=== PATIENT | female | born 1990 | race Caucasian/White ===

== ENCOUNTER 2022-08-10 16:34 | Emergency (ER) | payer OTHER, SELFPAY ==
[2022-08-10 16:41] VITALS: BP 124/77; PULSE 64; RESP 18; TEMP 36.8; O2SAT 100; BMI 24.3
[2022-08-10 17:34] LABS: Bacteria Urine Occasional (0-1); Culture Indicated Urine Specimen Cultured; RBC Urine 1-5/HPF (0-5/HPF); WBC Urine 5-10/HPF (0-5/HPF)
--- NOTE | 2022-08-10 21:08 | ED_ITS ---
HPI - Female Genitourinary <TYRESE Orr - Last Filed: 08/10/22 21:28> General Chief complaint: Urogenital-Female Stated complaint: uti infection/pain x1 day Time Seen by Provider: 08/10/22 18:59 Source: patient Mode of arrival: Ambulatory History of Present Illness HPI Narrative: This is a 31-year-old female without significant medical history presents emergency department complaining of dysuria and urinary symptoms on and off over the last few months with what she thinks is a recurrent urinary tract infection that has never fully resolved. She denies fever chills, denies nausea vomiting, denies flank playing or sweating. States that she has vaginal discharge, denies any blood in her urine, denies chance of . She denies any abdominal pain or abnormal stool. Related Data Previous Rx's Medication Instructions Recorded phenazopyridine 100 mg tablet 100 mg PO QPC 6 doses #7 tabs 08/10/22 (Pyridium) Allergies Allergy/AdvReac Type Severity Reaction Status Date / Time No Known Drug Allergies Allergy Verified 08/10/22 16:41 Review of Systems <TYRESE Orr - Last Filed: 08/10/22 21:28> Review of Systems ROS Unobtainable: All systems reviewed & are unremarkable except as noted in HPI and below Patient History <TYRESE Orr - Last Filed: 08/10/22 21:28> alcohol intake frequency: holidays/special occasions only Substance Use Type: does not use Exam <TYRESE Orr - Last Filed: 08/10/22 21:28> Narrative Exam Narrative: Reviewed vitals signs and nursing notes. General: cooperative, comfortable, in no acute distress, well groomed HEENT: symmetrical facial expressions, moist mucous membranes Cardiovascular: regular rate and rhythm, no peripheral edema, warm extremities Respiratory: normal effort, able to speak in complete sentences, without wheezing, stridor, or abnormal breath sounds. No retractions or tachypnea. GI: abdomen soft, nontender to palpation, nondistended, without masses, rebound tenderness or exquisite tenderness with exam. Mild suprapubic tenderness with deep palpation, nontender over left and right ovary, no CVA tenderness bilaterally MSK: moves all extremities, neurovascularly intact, no weakness, normal tone Skin: brisk capillary refill, without pallor or erythema Neuro: normal speech and cognition, A&O x3, ambulatory, clear speech Psych: mental status is grossly normal, congruent mood, normal affect, pleasant and cooperative Initial Vital Signs Initial Vital Signs: Vital Signs Temperature 98.2 F 08/10/22 16:41 Pulse Rate 64 08/10/22 16:41 Respiratory Rate 18 08/10/22 16:41 Blood Pressure 124/77 08/10/22 16:41 Pulse Oximetry 100 08/10/22 16:41 Oxygen Delivery Method 08/10/22 16:41 <Rosa Brown DO - Last Filed: 08/17/22 08:03> Initial Vital Signs Initial Vital Signs: Vital Signs Temperature 98.2 F 08/10/22 16:41 Pulse Rate 64 08/10/22 16:41 Respiratory Rate 18 08/10/22 16:41 Blood Pressure 124/77 08/10/22 16:41 Pulse Oximetry 100 08/10/22 16:41 Oxygen Delivery Method 08/10/22 16:41 Course <TYRESE Orr - Last Filed: 08/10/22 21:28> Orders Ordered: Discontinued Medications Ceftriaxone Sodium (Ceftriaxone 2,000 Mg Vial) 1,000 mg IM NOW ONE Stop: 08/10/22 20:36 Last Admin: 08/10/22 21:12 Dose: Not Given Documented By: ABDELRAHMAN Cephalexin HCl (Cephalexin 250 Mg Capsule) 1,000 mg PO NOW ONE Stop: 08/10/22 21:13 Last Admin: 08/10/22 21:17 Dose: 1,000 mg Documented By: ABDELRAHMAN Metronidazole (Metronidazole 500 Mg Tablet) 500 mg PO NOW ONE Stop: 08/10/22 21:04 Last Admin: 08/10/22 21:17 Dose: 500 mg Documented By: ABDELRAHMAN Phenazopyridine HCl (Phenazopyridine 100 Mg Tablet) 100 mg PO NOW ONE Stop: 08/10/22 21:08 Last Admin: 08/10/22 21:17 Dose: 100 mg Documented By: ABDELRAHMAN Vital Signs Vital signs: Vital Signs - 8 hr 08/10/22 16:41 Temperature 98.2 F Pulse Rate 64 Respiratory Rate 18 Blood Pressure 124/77 Pulse Oximetry 100 Oxygen Delivery Method Room Air <Rosa Brown DO - Last Filed: 08/17/22 08:03> Orders Ordered: Discontinued Medications Ceftriaxone Sodium (Ceftriaxone 2,000 Mg Vial) 1,000 mg IM NOW ONE Stop: 08/10/22 20:36 Last Admin: 08/10/22 21:12 Dose: Not Given Documented By: ABDELRAHMAN Cephalexin HCl (Cephalexin 250 Mg Capsule) 1,000 mg PO NOW ONE Stop: 08/10/22 21:13 Last Admin: 08/10/22 21:17 Dose: 1,000 mg Documented By: ABDELRAHMAN Metronidazole (Metronidazole 500 Mg Tablet) 500 mg PO NOW ONE Stop: 08/10/22 21:04 Last Admin: 08/10/22 21:17 Dose: 500 mg Documented By: ABDELRAHMAN Phenazopyridine HCl (Phenazopyridine 100 Mg Tablet) 100 mg PO NOW ONE Stop: 08/10/22 21:08 Last Admin: 08/10/22 21:17 Dose: 100 mg Documented By: ABDELRAHMAN Vital Signs Vital signs: Vital Signs - 8 hr 08/10/22 16:41 Temperature 98.2 F Pulse Rate 64 Respiratory Rate 18 Blood Pressure 124/77 Pulse Oximetry 100 Oxygen Delivery Method Room Air MDM - Female Genitourinary <TYRESE Orr - Last Filed: 08/10/22 21:28> Lab Data Lab results narrative: [facility] CLIA ID [id number] [address] [place] [address] RUN DATE: 08/10/22 Specimen Inquiry PAGE 1 RUN TIME: 2124 Name: Camelia Amezcua Age/Sex: 31/F Attend Dr: Coby White Unit#: [id number] : 1990Location: ED Re08/10/22 Disch: Status: REG ER SPEC #: [id number] DAVIS: 08/10/22 STATUS: COMP REQ #: [id number] SPDESC: RECD: 08/10/[address]: Coby White SOURCE: Vaginal ENTR: 08/10/[address]: FAX TO: ORDERED: Wet Prep Procedure Result Verified Site Wet Prep Tric BV Lauren Final 08/10/222055 White blood cells Occasional WBC seen Clue cells: None seen Yeast: None seen Trichomonas: None seen Labs: Lab Results 08/10/22 Range/Units 16:50 Urine RBC 1-5/hpf (0-5/HPF) Urine WBC 5-10/hpf H (0-5/HPF) Urine Bacteria Occasional (0-1) (None) Ur Culture Indicated? Specimen cultured Point of Care Testing Test Results Negative Urine Dip Bedside Urine Glucose Negative Bedside Urine Bilirubin - Negative Bedside Urine Ketone - Negative Urine Specific [place] 1.015 Bedside Urine Occult Blood +++ Bedside Urine pH 7.0 Bedside Urine Protein - Negative Bedside Urine Urobilinogen - Negative Bedside Urine Nitrite - Negative Bedside Urine Leukocytes + 70 Esterase MDM Narrative Medical decision making narrative: This is a 31-year-old female presents emergency department with dysuria, urinary for the 1-2 weeks she states fully resolve. She presents today with a UA positive for WBCs, small bacteria and no blood, no lidocaine available so opted to treat with cephalexin instead and patient received her 1st dose here. She is afebrile, without flank pain, nausea, vomiting, tachycardia, symptoms have stomach intention. She denies history of nephrolithiasis, was nontender over ovaries and abdomen.. Her wet prep is positive for WBCs clue cells, yeast, Trichomonas. Patient states her discharge has been abnormal, will treat for bacterial vaginosis with Flagyl x7 days. Recommend follow-up with PCP for test of cure, return to the emergency department for worsening symptoms. Patient is appropriate and amenable to discharge home. Vital signs are stable on repeat examination is unremarkable. Patient has been informed of results. Patient has been given strict return to ER precautions for any new or worsening symptoms. Patient understands to follow up closely with outpatient providers as instructed. Patient understands plan and agrees to discharge home. All questions and concerns answered at this time. <Rosa Brown, DO - Last Filed: 08/17/22 08:03> Lab Data Labs: Lab Results 08/10/22 Range/Units 16:50 Urine RBC 1-5/hpf (0-5/HPF) Urine WBC 5-10/hpf H (0-5/HPF) Urine Bacteria Occasional (0-1) (None) Ur Culture Indicated? Specimen cultured Point of Care Testing Test Results Negative Urine Dip Bedside Urine Glucose Negative Bedside Urine Bilirubin - Negative Bedside Urine Ketone - Negative Urine Specific [place] 1.015 Bedside Urine Occult Blood +++ Bedside Urine pH 7.0 Bedside Urine Protein - Negative Bedside Urine Urobilinogen - Negative Bedside Urine Nitrite - Negative Bedside Urine Leukocytes + 70 Esterase Discharge Plan Departure Patient Disposition: Home Clinical Impression: Bacterial vaginosis Urinary tract infection Qualifiers: Urinary tract infection type: acute cystitis Hematuria presence: without hematuria Qualified Code(s): N30.00 - Acute cystitis without hematuria Instructions: Bacterial Vaginosis, DI for Urinary Tract Infection (UTI) Activity Restrictions/Additional Instructions: *You have been diagnosed with a urinary tract infection and bacterial vaginitis. Please take these medications for the next week to help treat your symptoms and they infection. Follow-up with your primary care provider for a test of cure if you have ongoing symptoms. Stay hydrated, the medication you received in the emergency department should treat your infection but it was still take the medications. For pain or chills, please use ibuprofen 600 every 6 hours, stay hydrated, take Tylenol 650 mg in addition to this on the same schedule. If you have worsening of your symptoms, fever, vomiting, please return to the emergency department. Please schedule a follow-up appointment with a primary care provider or call the number listed below to establish care with 1 of the PCPs in our system. *What to do: *Please continue to take your regular medications as directed. [ x] New medication prescriptions sent to your pharmacy: [[facility] ] [ ] New medication written as a paper prescription [ ] No new medications given *Please follow up with your primary care provider in 2-3 days, call for an appointment. Let them know you were seen in the Emergency Department and that we asked that you be seen for follow-up. We will electronically transmit a record of today's note if your PCP is in our system *If you do not have a primary care provider please contact [phone] to establish care with one of the [facility] primary care providers. *Return to Emergency Department if you should have any new, worsening, or concerning symptoms, such as [fever greater than 101F, chills, worsening pain, persistent vomiting or other bothersome symptoms]. Prescriptions: New phenazopyridine [Pyridium] 100 mg tablet 100 mg PO QPC Qty: 7 0RF <Rosa Borwn DO - Last Filed: 08/17/22 08:03> Cosign ED Attending Cosignature Attestation: I was immediately available in the department for consultation. Documentation has been reviewed.
[2022-08-10] MEDS: cephALEXin 250 MG CAPSULE 1000 MG PO (21:17)
[2022-08-10] MEDS: metroNIDAZOLE 500 MG TABLET PO (21:17)
[2022-08-10] MEDS: PHENAZOPYRIDINE 100 MG TABLET PO (21:17)
[2022-08-10 21:31] VITALS: BP 122/78; PULSE 70; RESP 14; O2SAT 99
== END 2022-08-10 21:33 | disposition home or self-care (01) ==
PROVIDERS: Emergency Medicine; Emergency Provider Nurse Practitioner Critical Care Medicine
DX: N76.0 Acute vaginitis (principal); N30.00 Acute cystitis without hematuria
CPT/HCPCS: 81003; 81015; 81025; 87086; 87210; 99283

== ENCOUNTER → 2023-07-19 17:07 | Outpatient (CLI) | payer OTHER, SELFPAY ==
--- NOTE | 2023-07-19 17:13 | DI.MRI.S_ITS ---
PROCEDURE: MR KNEE LT WO CON INDICATIONS: LEFT KNEE PAIN TECHNIQUE: Noncontrast sagittal PD fast spin echo and T2 fast spin echo with fat saturation, sagittal 3-D FLASH with fat saturation; coronal T1 spin echo and PD fast spin echo with fat saturation, and axial PD fast spin echo with fat saturation through the knee. COMPARISON: None. FINDINGS: Image quality: Excellent. Menisci: The medial meniscus is truncated, presumably secondary to meniscectomy. The lateral meniscus demonstrates normal morphology and internal signal. The meniscal root ligaments appear intact. Cruciate ligaments: Patient is status post anterior cruciate ligament repair. Graft appears intact, with expected signal changes from ligamentization. The tendon graft appears slightly irregular. No high-grade partial or full-thickness graft tears. No posterior bowing of the graft to suggest roof impingement. Femoral and tibial tunnels are in expected positions, without widening. Small tunnel cysts noted in the proximal tibial tunnel. The posterior cruciate ligament appears intact. Medial structures: The medial collateral ligament appears intact. The semimembranosus tendon insertions and meniscocapsular junction appear intact. Visualized portions of the pes anserinus tendons appear intact. No abnormal bursal fluid. Lateral structures: The lateral collateral ligament, long and short heads of the biceps femoris tendon appear intact. The popliteus tendon appears normal;. Iliotibial band appears normal, without findings to suggest friction syndrome. Anterior structures: The quadriceps and patellar tendons appear intact. Patellar alignment is normal. No femoral trochlear dysplasia or ventral trochlear prominence. No edema in the infrapatellar fat pad. No localized arthrofibrosis (cyclops lesion) in the anterior intercondylar notch. Bones and cartilage: Sagittal images demonstrate no abnormal anterior tibial translation. No bone marrow contusions or fractures. Mild cartilage fibrillation with preserved cartilage thickness. Joint space: There is small knee joint fluid. There is a small Granados's cyst. Normal appearing synovial plicae are incidentally noted. There is a 6 mm intra-articular body in the anterior intercondylar notch. IMPRESSION: 1. Postsurgical changes related to ACL repair. No high-grade partial-thickness or full-thickness tear of the tendon graft. 2. Truncation of the medial meniscus, likely sequelae of meniscectomy. 3. A 6 mm intra-articular body in the anterior intercondylar notch. 4. Small knee joint effusion. 5. A small Granados's cyst. Dictated by: Fifi Richmond M.D. on 07/20/2023 at 13:20 Approved by: Fifi Richmond M.D. on 07/21/2023 at 8:11
== END ==
PROVIDERS: Referring Provider Preventive Medicine Aerospace Medicine; Visit Provider Preventive Medicine Aerospace Medicine
DX: M25.462 Effusion, left knee (principal); M71.22 Synovial cyst of popliteal space [Baker], left knee; M23.42 Loose body in knee, left knee; M23.8X9 Other internal derangements of unspecified knee; M25.569 Pain in unspecified knee
CPT/HCPCS: 73721

== ENCOUNTER 2023-08-19 12:42 | Emergency (ER) | payer OTHER, SELFPAY ==
[2023-08-19] VITALS (9 sets, daily range): BP systolic 116–141; BP diastolic 61–86; PULSE 51–75; RESP 16–18; TEMP 36.1; O2SAT 96–100; BMI 25.0
[2023-08-19] MEDS: ACETAMINOPHEN 325 MG TABLET 650 MG PO (13:08)
[2023-08-19] MEDS: ONDANSETRON 4 MG ODT SL ×2 (13:09→16:49)
--- NOTE | 2023-08-19 13:15 | DI.CT.S_ITS ---
PROCEDURE: CT CERVICAL SPINE WO CON INDICATIONS: knee to head, + vomiting TECHNIQUE: Noncontrast 3 mm thick sections acquired from the skull base to the T4 level. Sagittal and coronal reformats were then constructed. For radiation dose reduction, the following was used: automated exposure control, adjustment of mA and/or kV according to patient size. COMPARISON: None. FINDINGS: Image quality: Excellent. Bones: No fractures or dislocations. Visualized superior ribs are intact. Soft tissues: Prevertebral soft tissues are normal in thickness. No paravertebral hematomas. No apical pneumothoraces. IMPRESSION: No acute fracture. No osseous lesion. If symptoms and/or clinical suspicion for pathology persist, further assessment with bone scan or MRI may be helpful for further assessment. Dictated by: Vianey Cardoso M.D. on 08/19/2023 at 13:54 Approved by: Vianey Cardoso M.D. on 08/19/2023 at 13:56
--- NOTE | 2023-08-19 13:15 | DI.CT.S_ITS ---
PROCEDURE: CT HEAD/BRAIN WO CON INDICATIONS: knee to head, + vomiting TECHNIQUE: Noncontrast 4.5 mm thick angled axial sections acquired from the foramen magnum to the vertex, with coronal and sagittal reformats. For radiation dose reduction, the following was used: automated exposure control, adjustment of mA and/or kV according to patient size. COMPARISON: None. FINDINGS: Image quality: Diagnostic. CSF spaces: Basal cisterns are patent. No extra-axial fluid collections. Ventricles are normal in size and shape. Brain: No midline shift. No intracranial masses or hemorrhage. Srivastava-white matter interface is normal. Skull and face: Calvarium and visualized facial bones are intact, without suspicious lesions. Sinuses: Visualized sinuses and mastoids are clear. IMPRESSION: No acute intracranial pathology. Dictated by: Vianey Cardoso M.D. on 08/19/2023 at 13:54 Approved by: Vianey Cardoso M.D. on 08/19/2023 at 13:54
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
[2023-08-19] MEDS: PROPARACAINE 0.5% OPHTH SOL 1 DROPS EYE-BOTH (16:50)
[2023-08-19] MEDS: FLUORESCEIN 1 MG STRIP EYE-BOTH (16:50)
--- NOTE | 2023-08-19 18:02 | PC.NURSE ---
Hospital Transfer calls for patient [phone][facility], spoke to Emili, patient is on wait list
[2023-08-19] MEDS: ACETAMINOPHEN IV 1,000 MG/100 ML VIAL 400 MG IV (18:34)
[2023-08-19 18:49] LABS: Add Manual Diff / Slide Review NO; Basophils Absolute Auto 0 /uL (0-100); Basophils Percent Auto 0.4 % (0-2); Eosinophils Absolute Auto 0 /uL (0-450); Hematocrit 40.5 % (36-46); Hemoglobin 13.8 g/dL (12.0-16.0); Lymphocytes Absolute Auto 1000 /uL (1100-4500); Mean Corpuscular HGB Conc 34.1 % (30-36); Mean Corpuscular Hemoglobin 29.9 PG (26-34); Mean Corpuscular Volume 87.7 fL (80-100); Monocytes Absolute Auto 200 /uL (0-900); Monocytes Percent Auto 3.1 % (3-14); Neutrophils Absolute Auto 6300 /uL (1500-7000); Neutrophils Percent Auto 83.5 % (50-75); Platelet Count 207 X10^3/uL (150-400); Red Blood Cell Count 4.62 X10^6/uL (4.0-5.2); Red Cell Distribution Width 13.4 % (11.6-14.8); White Blood Cell Count 7.6 X10^3/uL (4.5-11.0)
[2023-08-19 19:20] LABS: BUN Creatinine Ratio 20.6 (6-22); Blood Urea Nitrogen 13 mg/dL (7-17); Calcium 9.1 mg/dL (8.4-10.2); Carbon Dioxide 24 mmol/L (22-32); Chloride 105 mmol/L (98-107); Estimated Glomerular Filt Rate > 60 mL/min (>60); Glucose 105 mg/dL (70-100); HEMOLYSIS < 15 (0-50); Potassium 4.5 mmol/L (3.4-5.1); Sodium 137 mmol/L (137-145)
[2023-08-19 19:21] LABS: Pregnancy Test Serum,Qual Negative (Negative)
[2023-08-19] MEDS: SODIUM CHLORIDE 0.9% 1,000 ML 1000 ML IV (19:48)
[2023-08-19] MEDS: OXYCODONE/ACETAMINOPHEN 5/325 TABLET 2 TAB PO (20:23)
== END 2023-08-19 20:53 | disposition short-term general hospital (02) ==
PROVIDERS: Emergency Provider Emergency Medicine
DX: S02.31XA Fracture of orbital floor, right side, initial encounter for closed fracture (principal); H50.6 Mechanical strabismus; H53.2 Diplopia; R11.2 Nausea with vomiting, unspecified; W51.XXXA Accidental striking against or bumped into by another person, initial encounter
CPT/HCPCS: 36415; 70450; 70486; 72125; 80048; 81003; 81025; 84703; 85025; 96361; 96365; 99284; 99285; J0136